=== PATIENT | male | born 1970 | race Caucasian/White ===

== ENCOUNTER 2017-12-26 09:07 | Emergency (ER) | payer SELFPAY ==
[2017-12-26] MEDS: KETOROLAC 30 MG INJ IM (11:43)
== END 2017-12-26 12:51 | disposition home or self-care (01) ==
LOC: FTE 09:07
DX: M54.5 Low back pain (principal); F17.210 Nicotine dependence, cigarettes, uncomplicated
CPT/HCPCS: 96372; 99284-25